=== PATIENT | female | born 2000 | race Two or more races ===

== ENCOUNTER 2025-04-18 23:59 | Inpatient (IN) | payer OTHER ==
[~2025-04-18] VITALS: Ht 157.5 cm; Wt 54.4 kg
[2025-04-19] MEDS ORDERED: HYDROCODONE/APAP 5/325MG TABLET ONE (00:49)
[2025-04-19] MEDS: HYDROCODONE/APAP 5/325MG TABLET PO ONE (00:56)
[2025-04-19] MEDS ORDERED: LIDOCAINE 1%-EPI 1:100,000 20 ML VIAL ONE (03:02)
[2025-04-19 03:08] LABS: PLATELET COUNT (AUTO) 210 K/uL (150-450); RED BLOOD CELL COUNT(AUTO) 4.66 MIL/uL (4.0-5.2); RED CELL DISTRIBUTION WIDTH 12.5 % (11.5-15.0); WHITE BLOOD COUNT (AUTO) 10.1 K/uL (4.3-11.0)
[2025-04-19 03:09] LABS: CALCIUM, SERUM 8.8 mg/dL (8.5-10.1); CREATININE 0.9 mg/dL (0.6-1.3); SODIUM SERUM 141.0 mmol/L (136-145); UREA NITROGEN, BLOOD 15.0 mg/dL (7-18)
[2025-04-19 03:12] LABS: INR 1.03 (0.91-1.10)
[2025-04-19] MEDS ORDERED: MORPHINE SULFATE INJ 4 MG/ML DISP.SYRIN ONE ×2 (03:16→07:44)
[2025-04-19] MEDS ORDERED: ONDANSETRON HCL/PF 4 MG/2 ML VIAL ONE ×2 (03:16→07:43)
[2025-04-19] MEDS: MORPHINE SULFATE INJ 2 MG/ML DISP.SYRIN IV ONE (03:27)
[2025-04-19] MEDS: ONDANSETRON HCL/PF 4 MG/2 ML VIAL IV ONE (03:27)
[2025-04-19] MEDS ORDERED: ACETAMINOPHEN 325 MG TABLET PO PRN (05:00)
[2025-04-19] MEDS ORDERED: TEMAZEPAM 15 MG CAPSULE PO PRN (05:00)
[2025-04-19] MEDS ORDERED: Z GUARD REMEDY 4 OZ OINT TP PRN (05:00)
[2025-04-19] MEDS ORDERED: MORPHINE SULFATE INJ 2 MG/ML DISP.SYRIN IV PRN (05:00)
[2025-04-19] MEDS ORDERED: MAG HYDROX/AL HYDROX/SIMETH 30 ML UDC PO PRN (05:00)
[2025-04-19] MEDS ORDERED: PANTOPRAZOLE 40 MG TABLET.DR PO ONE (07:44)
[2025-04-19] MEDS: MORPHINE SULFATE INJ 2 MG/ML DISP.SYRIN IV PRN (07:53)
[2025-04-19] MEDS: PANTOPRAZOLE 40 MG TABLET.DR PO SCH (07:53)
[2025-04-19] MEDS: ONDANSETRON HCL/PF 4 MG/2 ML VIAL IVP PRN (07:54)
[2025-04-19 09:00] VITALS: BP 104/66; TEMP 97.3; O2SAT 100
[2025-04-19] MEDS: ENOXAPARIN SODIUM 40 MG/0.4 ML DISP.SYRIN SQ SCH (09:00)
[2025-04-19] MEDS: IV NS 0.9% 1,000 ML IV PRN (10:57)
[2025-04-19 16:00] VITALS: BP 99/57; TEMP 98.8; O2SAT 97
[2025-04-19 20:00] VITALS: BP 105/71; TEMP 99; O2SAT 96
[2025-04-20 06:19] LABS: PLATELET COUNT (AUTO) 180 K/uL (150-450); RED BLOOD CELL COUNT(AUTO) 4.05 MIL/uL (4.0-5.2); RED CELL DISTRIBUTION WIDTH 12.2 % (11.5-15.0); WHITE BLOOD COUNT (AUTO) 5.5 K/uL (4.3-11.0)
[2025-04-20 06:31] LABS: CALCIUM, SERUM 8.2 mg/dL (8.5-10.1); CREATININE 0.8 mg/dL (0.6-1.3); PHOSPHORUS 3.3 mg/dL (2.5-4.9); SODIUM SERUM 138.0 mmol/L (136-145); UREA NITROGEN, BLOOD 9.0 mg/dL (7-18)
[2025-04-20 07:30] VITALS: BP 103/70; TEMP 99.5; O2SAT 100
[2025-04-20] MEDS: HYDROCODONE/APAP 5/325MG TABLET PO PRN (08:59)
[2025-04-20 12:57] LABS: PREGNANCY TEST URINE QUAL NEGATIVE (NEGATIVE)
[2025-04-20 16:00] VITALS: BP 101/70; TEMP 97.3; O2SAT 98
[2025-04-20 20:00] VITALS: BP 129/82; TEMP 98.1; O2SAT 7
[2025-04-21 07:30] VITALS: BP 119/79; TEMP 98.6; O2SAT 100
[2025-04-21 16:00] VITALS: BP 109/67; TEMP 98.1; O2SAT 99
[2025-04-21 20:31] VITALS: BP 124/70; TEMP 97.7; O2SAT 100
[2025-04-22 08:00] VITALS: BP 117/69; TEMP 98.1; O2SAT 98
[2025-04-22] MEDS ORDERED: BUPIVACAINE 0.25% 75 MG/30 ML VIAL ONE (10:00)
[2025-04-22] MEDS ORDERED: VANCOMYCIN 1 GM VIAL ONE (10:06)
[2025-04-22] MEDS ORDERED: FENTANYL PF 250MCG/5ML AMPUL ONE (12:13)
[2025-04-22] MEDS ORDERED: ROCURONIUM BROMIDE 50 MG/5 ML ONE (12:13)
[2025-04-22] MEDS ORDERED: TRANEXAMIC ACID 1,000 MG/10 ML VIAL ONE (12:56)
[2025-04-22] MEDS ORDERED: MORPHINE SULFATE INJ 4 MG/ML DISP.SYRIN ONE (16:37)
[2025-04-22] MEDS: MORPHINE SULFATE INJ 4 MG/ML DISP.SYRIN IV PRN (16:48)
[2025-04-22] MEDS ORDERED: FENTANYL PF 100MCG/2ML AMPUL ONE (16:54)
[2025-04-22 20:00] VITALS: BP 118/68; TEMP 97.9; O2SAT 98
[2025-04-23] MEDS ORDERED: HYDROMORPHONE 1 MG/1 ML DISP.SYRIN IV PRN (05:30)
[2025-04-23] MEDS: HYDROMORPHONE 1 MG/1 ML DISP.SYRIN IV ONE (06:06)
[2025-04-23 06:47] LABS: PLATELET COUNT (AUTO) 220 K/uL (150-450); RED BLOOD CELL COUNT(AUTO) 3.83 MIL/uL (4.0-5.2); RED CELL DISTRIBUTION WIDTH 12.2 % (11.5-15.0); WHITE BLOOD COUNT (AUTO) 6.5 K/uL (4.3-11.0)
[2025-04-23 07:08] LABS: ASPARTATE AMINOTRANSFERASE 37.0 U/L (15-37); CALCIUM, SERUM 8.2 mg/dL (8.5-10.1); CREATININE 0.9 mg/dL (0.6-1.3); PHOSPHORUS 2.9 mg/dL (2.5-4.9); SODIUM SERUM 138.0 mmol/L (136-145); TOTAL PROTEIN, SERUM 6.6 g/dL (6.4-8.2); UREA NITROGEN, BLOOD 11.0 mg/dL (7-18)
[2025-04-23 08:00] VITALS: BP 132/81; TEMP 97.8; O2SAT 99
[2025-04-23] MEDS: ASPIRIN 81 MG TAB.CHEW PO SCH (08:41)
[2025-04-23] MEDS: HYDROMORPHONE 1 MG/1 ML DISP.SYRIN IV PRN (09:59)
[2025-04-23] MEDS: HYDROCODONE/APAP 5/325MG TABLET PO PRN (11:50)
[2025-04-23] MEDS: POTASSIUM CHLORIDE 20 MEQ TAB.PRT.SR PO ONE (11:51)
[2025-04-23] MEDS: MAGNESIUM OXIDE 400 MG TABLET PO ONE (11:51)
[2025-04-23] MEDS: MORPHINE SULFATE INJ 4 MG/ML DISP.SYRIN IV PRN (14:01)
[2025-04-23 16:00] VITALS: BP 124/84; TEMP 98.3; O2SAT 97
[2025-04-23 20:00] VITALS: BP 129/82; TEMP 100.8; O2SAT 99
[2025-04-23 20:30] VITALS: TEMP 98.3
[2025-04-24 06:38] LABS: CALCIUM, SERUM 8.5 mg/dL (8.5-10.1); CREATININE 1.0 mg/dL (0.6-1.3); SODIUM SERUM 137.0 mmol/L (136-145); UREA NITROGEN, BLOOD 9.0 mg/dL (7-18)
[2025-04-24 08:00] VITALS: BP 124/75; TEMP 98.2; O2SAT 96
[2025-04-24 09:05] VITALS: BP 151/60; TEMP 98.2; O2SAT 96
[2025-04-24 21:41] VITALS: BP 124/75; TEMP 98.8; O2SAT 98
[2025-04-25 08:45] VITALS: BP 138/69; TEMP 98.1; O2SAT 97
[2025-04-25 16:09] VITALS: BP 114/70; TEMP 100.2; O2SAT 98
[2025-04-25 20:00] VITALS: BP 121/75; TEMP 98.8; O2SAT 100
[2025-04-25 21:07] LABS: CALCIUM, SERUM 8.7 mg/dL (8.5-10.1); CREATININE 0.8 mg/dL (0.6-1.3); SODIUM SERUM 139.0 mmol/L (136-145); UREA NITROGEN, BLOOD 7.0 mg/dL (7-18)
[2025-04-26 08:00] VITALS: BP 117/73; TEMP 98.1; O2SAT 98
[2025-04-26 08:27] VITALS: BP 117/73; TEMP 98.1; O2SAT 98
[2025-04-26 13:43] LABS: CALCIUM, SERUM 8.9 mg/dL (8.5-10.1); CREATININE 0.7 mg/dL (0.6-1.3); SODIUM SERUM 141.0 mmol/L (136-145); UREA NITROGEN, BLOOD 13.0 mg/dL (7-18)
[2025-04-26 16:00] VITALS: BP 126/78; TEMP 98.1; O2SAT 96
[2025-04-26 20:00] VITALS: BP 114/78; TEMP 98.1; O2SAT 95
[2025-04-27 08:00] VITALS: BP 109/70; TEMP 98.8; O2SAT 92
[2025-04-27 13:15] LABS: CALCIUM, SERUM 9.7 mg/dL (8.5-10.1); CREATININE 0.8 mg/dL (0.6-1.3); SODIUM SERUM 141.0 mmol/L (136-145); UREA NITROGEN, BLOOD 14.0 mg/dL (7-18)
[2025-04-27 15:54] VITALS: BP 113/78; TEMP 98.1; O2SAT 98
[2025-04-27] MEDS: MAGNESIUM HYDROXIDE 30 ML UDC PO PRN (18:05)
[2025-04-27 22:07] LABS: HIV-1/2 ANTIBODY NON REACTIVE (NONREACTIVE)
== END 2025-04-27 19:17 | disposition home or self-care (01) | DRG 494 ==
LOC: ER 04-19 00:01 → MED 04-19 05:20
PROC: 0QSG04Z Reposition Right Tibia with Internal Fixation Device, Open Approach (ICD-10-PCS; principal; 2025-04-22 12:30)
DX: S82.141A Displaced bicondylar fracture of right tibia, initial encounter for closed fracture (principal); S82.61XA Displaced fracture of lateral malleolus of right fibula, initial encounter for closed fracture; E87.6 Hypokalemia; V43.52XA Car driver injured in collision with other type car in traffic accident, initial encounter; Y92.410 Unspecified street and highway as the place of occurrence of the external cause; S60.512A Abrasion of left hand, initial encounter; X58.XXXA Exposure to other specified factors, initial encounter; Y92.9 Unspecified place or not applicable; S43.402A Unspecified sprain of left shoulder joint, initial encounter; F32.A Depression, unspecified
CPT/HCPCS: 36415; 70450-TC; 71045-TC; 73030-TC; 73130-TC; 73502; 73552; 73562; 73564-TC; 73590-TC; 73600-TC; 73610-TC; 73630-TC; 73700-TC; 80048-TC; 80053-TC; 83735-TC; 84100-TC; 84703-TC; 85025-TC; 85730-TC; 86850-TC; 87806; 97110-TC; 97116-TC; 97530-TC; 97535-TC; A4223; A6209; C1713; G0378; J0690; J1171; J1650; J2270; J2405; J2704; J3010; J3373; J3490; J7030